=== PATIENT | female | born 1940 | race Caucasian/White ===

== ENCOUNTER 2023-12-22 14:40 | Outpatient (CLI) | payer MEDICARE ==
--- NOTE | 2023-12-22 22:22 | XRAY Report ---
PROCEDURE: Toe(s) 2+V LT INDICATIONS: PRESSURE ULCER OF OTHER SITE TECHNIQUE: 1 view of the foot and 2 views of the great toe(s) acquired. COMPARISON: None. FINDINGS: Bones: No fractures or dislocations. 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 No dixon in film evidence of osteomyelitis. No suspicious bony lesions. Soft tissues: No suspicious soft tissue densities. No soft tissue gas or radiopaque foreign body. 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 No acute bony abnormality. Reviewed by: Kane Back MD on 12/22/2023 10:21 PM PDT Approved by: Kane Back MD on 12/22/2023 10:21 PM PDT Station ID: [id number]
== END 2023-12-22 14:41 | disposition home or self-care (01) ==
LOC: DI.N 14:40
PROVIDERS: ATTEND Family Medicine
DX: L89.899 Pressure ulcer of other site, unspecified stage (principal); L72.0 Epidermal cyst; M19.072 Primary osteoarthritis, left ankle and foot
CPT/HCPCS: 73660